=== PATIENT | female | born 1995 | race Caucasian/White ===

== ENCOUNTER → 2018-01-20 16:00 | Observation (INO) ==
[2018-01-20 14:04] LABS: Basophils % 0.4 %; Eosinophils # 0.1 K/mcL (0.0-0.6); Eosinophils % 0.8 %; Hematocrit 37.9 % (35.3-44.9); Immature Granulocytes % 0.5 % (0-4); Lymphocytes # 1.4 K/mcL (0.6-4.6); Lymphocytes % 18.6 %; Mean Corpuscular HGB Conc 34.3 g/dL (31.6-35.5); Mean Corpuscular Hemoglobin 28.8 pg (28.0-33.3); Mean Platelet Volume 10.4 fL (9.4-12.4); Monocytes # 0.4 K/mcL (0.0-1.3); Monocytes % 5.5 %; Neutrophils # 5.7 K/mcL (1.6-8.9); Platelet Count 270 K/mcL (140-400); Red Blood Count 4.51 M/mcL (3.82-4.97); Red Cell Distribution Width 13.7 % (11.5-14.5); Segmented Neutrophils % 74.2 %
[2018-01-20 14:06] LABS: Bilirubin,Urine Negative (Negative); Blood,Urine Negative (Negative); Clarity,Urine Cloudy (Clear); Color,Urine Yellow (Yellow); Glucose,Urine (UA) Normal (Normal); Ketones,Urine 40 mg/dL (Negative); Leukocyte Esterase,Urine Negative (Negative); Nitrite,Urine Negative (Negative); Protein,Urine Negative (Neg-Trace); Specific Gravity,Urine < 1.005 (1.010-1.025); Urobilinogen,Urine Normal (Normal)
[2018-01-20 14:07] LABS: Bacteria,Urine Moderate per hpf (None-Few); Hyaline Casts,Urine None Seen per lpf (None-Few); RBC,Urine 0-3 per hpf (0-3); Squamous Epithelial Cell,Urine Many per lpf (None-Few)
[2018-01-20 14:14] LABS: Amphetamine Screen,Urine Negative ng/mL (Cutoff=1000); Barbiturate Screen,Urine Negative ng/mL (Cutoff=200); Benzodiazepines Screen,Urine Negative ng/mL (Cutoff=200); Cannabinoid Screen,Urine Negative ng/mL (Cutoff = 50); Cocaine Screen,Urine Negative ng/mL (Cutoff= 300); Opiate Screen,Urine Negative ng/mL (Cutoff=300); Phencyclidine Screen,Urine Negative ng/mL (Cutoff=25)
[2018-01-20 14:27] LABS: Alanine Aminotransferase 54 Units/L (7-52); Aspartate Amino Transferase 26 Units/L (13-39); BUN/Creatinine Ratio 9 (6-26); Blood Urea Nitrogen 6 mg/dL (6-20); Lactate Dehydrogenase 130 Units/L (140-271); eGFR For Non-African Americans > 60 (> 60)
--- NOTE | 2018-01-20 14:58 | Discharge Summary ---
Date of Encounter: 01/20/18 Time of Encounter: 14:58 - Discharge Diagnosis (1) 36 weeks gestation of Priority: Primary Status: Acute Comments: Admitted to observation for elevated blood pressure reading at home. Currently diagnosed with gestational hypertension and gestational diabetes. (2) headache in third trimester Priority: Secondary Status: Acute Comments: Patient reports headache this morning at home. Rates it a 4 out of 10. Patient states she has not taken any Tylenol to alleviate the pain. (3) NST (non-stress test) reactive Priority: Secondary Status: Acute Comments: FHR 140 bpm, moderate variability, +15 x 15 accelerations, no decelerations. Irregular contractions on toco monitor (4) Elevated blood pressure affecting in third trimester, antepartum Priority: Secondary Status: Acute Comments: Patient reports her blood pressure at home was 192/108. Recheck at home was 160s over 80s. Pressures while here 120s and 130s over 80s. One isolated blood pressure of 159/105. Patient was on the phone crying at this time retake was 147/88. [facility] labs completed all within normal limits. Patient has follow-up appointment with Dr. Priest in 2 days. (5) Gestational diabetes Priority: Secondary Status: Acute Comments: Continue metformin twice a day as previously ordered. Attending home glucose monitoring as ordered. Qualifiers: Gestational diabetes mellitus control: oral hypoglycemic-controlled Trimester: third trimester Qualified Code(s): O24.415 - Gestational diabetes mellitus in , controlled by oral hypoglycemic drugs (6) Vaginal discharge during in third trimester Priority: Secondary Status: Acute Comments: Patient complaint of watery discharge today. Nitrazine and fern both negative. Speculum exam reveals large amount of white discharge. Vaginosis panel sample collected and sent to lab. Will treat as necessary. - Discharge Medications Home Medications: RX: Metformin HCl 500 mg PO BID 01/13/18 [History] Allergies/Adverse Reactions: Allergy/AdvReac Type Severity Reaction Status Date / Time No Known Allergies Allergy Verified 06/20/17 02:28 Data Procedures and tests throughout hospitalization: Laboratory Tests 01/20/18 01/20/18 01/20/18 13:00 13:00 13:00 WBC 7.7 RBC 4.51 Hgb 13.0 Hct 37.9 MCV 84.0 MCH 28.8 MCHC 34.3 RDW 13.7 Plt Count 270 MPV 10.4 Immature Gran % 0.5 Seg Neutrophils % 74.2 Lymphocytes % 18.6 Monocytes % 5.5 Eosinophils % 0.8 Basophils % 0.4 Neutrophils # 5.7 Lymphocytes # 1.4 Monocytes # 0.4 Eosinophils # 0.1 Basophils # 0.0 BUN Creatinine Est GFR ( Amer) Est GFR (Non-Af Amer) BUN/Creatinine Ratio Uric Acid AST ALT Lactate Dehydrogenase Urine Color Yellow Urine Clarity Cloudy A Urine pH 7.0 Ur Specific [place] < 1.005 L Urine Protein Negative Urine Glucose (UA) Normal Urine Ketones 40 H Urine Blood Negative Urine Nitrite Negative Urine Bilirubin Negative Urine Urobilinogen Normal Ur Leukocyte Esterase Negative Urine Microscopic RBC 0-3 Urine Microscopic WBC 3-5 H Ur Squamous Epith Cells Many H Urine Bacteria Moderate H Hyaline Casts None Seen Ur Culture Indicated? NO Urine Opiates Screen Negative Ur Barbiturates Screen Negative Ur Phencyclidine Scrn Negative Ur Amphetamines Screen Negative U Benzodiazepines Scrn Negative Urine Cocaine Screen Negative U Marijuana (THC) Screen Negative Ur Drug Screen Interp See Below 01/20/18 13:00 WBC RBC Hgb Hct MCV MCH MCHC RDW Plt Count MPV Immature Gran % Seg Neutrophils % Lymphocytes % Monocytes % Eosinophils % Basophils % Neutrophils # Lymphocytes # Monocytes # Eosinophils # Basophils # BUN 6 Creatinine 0.65 Est GFR ( Amer) > 60 Est GFR (Non-Af Amer) > 60 BUN/Creatinine Ratio 9 Uric Acid 5.0 AST 26 ALT 54 H Lactate Dehydrogenase 130 L Urine Color Urine Clarity Urine pH Ur Specific [place] Urine Protein Urine Glucose (UA) Urine Ketones Urine Blood Urine Nitrite Urine Bilirubin Urine Urobilinogen Ur Leukocyte Esterase Urine Microscopic RBC Urine Microscopic WBC Ur Squamous Epith Cells Urine Bacteria Hyaline Casts Ur Culture Indicated? Urine Opiates Screen Ur Barbiturates Screen Ur Phencyclidine Scrn Ur Amphetamines Screen U Benzodiazepines Scrn Urine Cocaine Screen U Marijuana (THC) Screen Ur Drug Screen Interp Labs on day of discharge: Labs from last 24 hours 01/20/18 01/20/18 01/20/18 13:00 13:00 13:00 WBC 7.7 RBC 4.51 Hgb 13.0 Hct 37.9 MCV 84.0 MCH 28.8 MCHC 34.3 RDW 13.7 Plt Count 270 MPV 10.4 Immature Gran % 0.5 Seg Neutrophils % 74.2 Lymphocytes % 18.6 Monocytes % 5.5 Eosinophils % 0.8 Basophils % 0.4 Neutrophils # 5.7 Lymphocytes # 1.4 Monocytes # 0.4 Eosinophils # 0.1 Basophils # 0.0 BUN 6 Creatinine 0.65 Est GFR ( Amer) > 60 Est GFR (Non-Af Amer) > 60 BUN/Creatinine Ratio 9 Uric Acid 5.0 AST 26 ALT 54 H Lactate Dehydrogenase 130 L Urine Color Yellow Urine Clarity Cloudy A Urine pH 7.0 Ur Specific [place] < 1.005 L Urine Protein Negative Urine Glucose (UA) Normal Urine Ketones 40 H Urine Blood Negative Urine Nitrite Negative Urine Bilirubin Negative Urine Urobilinogen Normal Ur Leukocyte Esterase Negative Urine Microscopic RBC 0-3 Urine Microscopic WBC 3-5 H Ur Squamous Epith Cells Many H Urine Bacteria Moderate H Hyaline Casts None Seen Ur Culture Indicated? NO Urine Opiates Screen Ur Barbiturates Screen Ur Phencyclidine Scrn Ur Amphetamines Screen U Benzodiazepines Scrn Urine Cocaine Screen U Marijuana (THC) Screen Ur Drug Screen Interp 01/20/18 13:00 WBC RBC Hgb Hct MCV MCH MCHC RDW Plt Count MPV Immature Gran % Seg Neutrophils % Lymphocytes % Monocytes % Eosinophils % Basophils % Neutrophils # Lymphocytes # Monocytes # Eosinophils # Basophils # BUN Creatinine Est GFR ( Amer) Est GFR (Non-Af Amer) BUN/Creatinine Ratio Uric Acid AST ALT Lactate Dehydrogenase Urine Color Urine Clarity Urine pH Ur Specific [place] Urine Protein Urine Glucose (UA) Urine Ketones Urine Blood Urine Nitrite Urine Bilirubin Urine Urobilinogen Ur Leukocyte Esterase Urine Microscopic RBC Urine Microscopic WBC Ur Squamous Epith Cells Urine Bacteria Hyaline Casts Ur Culture Indicated? Urine Opiates Screen Negative Ur Barbiturates Screen Negative Ur Phencyclidine Scrn Negative Ur Amphetamines Screen Negative U Benzodiazepines Scrn Negative Urine Cocaine Screen Negative U Marijuana (THC) Screen Negative Ur Drug Screen Interp See Below Date of admission: 01/20/18 12:48 Discharging clinician: Rosa Ganonn Anticipated date of discharge: 01/20/18 - Patient Status Disposition: Home, Self-Care Condition: Good Functional capacity at discharge: independent ambulation Overall status at discharge: patient is back to baseline - Discharge Instructions Follow Up With: Sandra Priest DO [Partnered Physician] - Additional Instructions: LABOR AND DELIVERY DISCHARGE INSTRUCTIONS Signs and Symptoms to be Reported to your Doctor Immediately: * Sudden gush, continuous or intermittent lead of fluid from vagina (note the time of gush and color of fluid) * Onset of bright red vaginal bleeding with or without pain (if you had a vaginal exam during this visit you may notice some dark red spotting. This is normal.) * Lower abdominal cramping or backache that is premenstrual-like feeling. * More than 6 contractions in one hour. * Burning during urination, having to urinate more frequently or pain in your mid-back. * A change in the baby's activity. This could be an increase or decrease in activity. * Severe headache which does not go away with tylenol. * Sudden swelling in the face, hands, arms and/or legs. * Upper abdominal pain - sometimes associated with heartburn or nausea and is not relieved by Maalox, Mylanta or Tums. * Dizziness or blurred vision or visual disturbances (seeing stars/lights). * Kick Counts One hour after a meal, lay down on one side in a quiet place. Count the number of steff the baby moves during an hour. If less than 6 movements, notify your physician. Diet: *Force fluids - 8-10 tall glasses of fluid per day. May include popsicles and jello. *Limit caffeine - this includes chocolate, coffee, tea, any soft drink containing such as all izzy, Brandon Yellow and Mountain Dew - Diet and Activity Activity: resume usual activities as tolerated Diet: regular diet Hospital Course [employer] Hospital course: She has a at 36 weeks 5 days who reports to labor and delivery today with complaint of elevated blood pressure at home. She reports a moderate headache rating of 4 of 10 and had not taken any Tylenol for it today. She reports intermittent visual disturbance as seeing spots. No right upper quadrant pain, reflexes normal. She reports positive movement, denies bleeding, reports leakage of watery fluid today. Blood pressures while patient was here ranged from 120s and 130s over 80s. Her highest blood pressure is 159/105 but patient was on the phone crying at this time. Retake of her blood pressure was 147/88. [facility] labs all returned within normal limits. Protein creatinine ratio is 0.28. Patient is scheduled to see Dr. Priest on Monday for routine visit. There are some irregular contractions noted on the monitor, patient was examined. Cervix is 1 cm thick and high. Patient will be discharged home and is to follow-up as scheduled on Monday. If vaginosis panel returns abnormal she will be called and appropriate treatment will be initiated. Time Attestation: Total time spent providing and/or coordinating discharge services: Time Spent: Less than 30 minutes Exam - Constitutional General appearance IM: A&O X 3, pleasant, no acute distress, answers questions appropriately - Respiratory Respiratory exam: Present: CTAB - Cardiovascular Cardiovascular exam IM: Present: RRR, +S1, +S2 - GI/Abdominal GI/Abdominal exam IM: normal bowel sounds, soft - Rectal Rectal exam: deferred - Extremities Exam Extremities exam IM: Present: full ROM, normal capillary refill, normal inspection, pedal edema - Neurological Exam Neurological exam: alert, normal gait, oriented X3 - VTE Reasons for not Prescribing Prophylaxis: Treatment not Indicated - Low risk for VTE
[2018-01-20 15:40] LABS: Protein/Creatinine Ratio,Urine 0.28 mg/mg (0.00-0.20)
[2018-01-20 16:42] LABS: Candida DNA Not Detected (Not Detect); Gardnerella DNA DETECTED (Not Detect); Trichomonas DNA Not Detected (Not Detect)
== END | disposition home or self-care (01) ==
LOC: 1NENULAB
PROVIDERS: ADMIT Obstetrics & Gynecology; ATTEND Obstetrics & Gynecology

== ENCOUNTER → 2018-02-05 13:49 | Observation (INO) ==
[2018-02-05 12:04] LABS: Amphetamine Screen,Urine Negative ng/mL (Cutoff=1000); Barbiturate Screen,Urine Negative ng/mL (Cutoff=200); Benzodiazepines Screen,Urine Negative ng/mL (Cutoff=200); Cannabinoid Screen,Urine Negative ng/mL (Cutoff = 50); Cocaine Screen,Urine Negative ng/mL (Cutoff= 300); Opiate Screen,Urine Negative ng/mL (Cutoff=300); Phencyclidine Screen,Urine Negative ng/mL (Cutoff=25)
--- NOTE | 2018-02-05 12:25 | OB/GYN Progress Note ---
Date of Encounter: 02/05/18 Time of Encounter: 12:20 - Assessment and Plan (1) 39 weeks gestation of Current Visit: Yes Status: Acute 2 hours monitoring - reactive NST, no decels during extended monitoring noted. PIH labs WNL Serial blood pressures Discharge home with labor and PIH precautions Follow up on Monday morning for scheduled IOL. (2) Elevated blood pressure complicating in third trimester, antep artum Current Visit: Yes Status: Acute (3) NST (non-stress test) reactive Current Visit: Yes Status: Acute Subjective - Subjective Interval history: Ms López is a at 39 weeks 0 days gestation that presents to triage for extended monitoring from the office. She had a deceleration in the office on NST and an KASSY of 9.9. She did have a mildly elevated blood pressure in the office as well of 140/90. She states positive movement. She denies headache, visual disturbances, epigastric pain, leaking of fluid, vaginal discharge/bleeding, and contractions. She is a GDM on metformin and is seen in the office by Dr Priest. Antepartum ROS: movement normal, other (decel in office on NST) Objective - Vital Signs Vital Signs: Intake and Output 02/04/18 02/05/18 02/05/18 23:59 07:59 15:59 Other: Weight 123.4 kg Patient Weight 02/05/18 23:59 Weight 123.4 kg - Exam FHR: auscultation normal, category 1 (Baseline 135, no contractions per TOCO) Auscultation: bilateral: normal Abdomen: Present: normal appearance, soft, gravid. Absent: tenderness Uterus: Present: normal. Absent: firm, tenderness
[2018-02-05 13:08] LABS: Basophils % 0.5 %; Eosinophils # 0.1 K/mcL (0.0-0.6); Eosinophils % 1.3 %; Hematocrit 35.7 % (35.3-44.9); Hemoglobin 12.2 g/dL (11.5-15.4); Immature Granulocytes % 0.4 % (0-4); Lymphocytes # 1.7 K/mcL (0.6-4.6); Lymphocytes % 19.3 %; Mean Corpuscular HGB Conc 34.2 g/dL (31.6-35.5); Mean Corpuscular Hemoglobin 28.2 pg (28.0-33.3); Mean Corpuscular Volume 82.6 fL (83.0-100.0); Mean Platelet Volume 10.1 fL (9.4-12.4); Monocytes # 0.5 K/mcL (0.0-1.3); Neutrophils # 6.2 K/mcL (1.6-8.9); Platelet Count 247 K/mcL (140-400); Red Blood Count 4.32 M/mcL (3.82-4.97); Segmented Neutrophils % 72.5 %
[2018-02-05 13:26] LABS: Alanine Aminotransferase 27 Units/L (7-52); Aspartate Amino Transferase 19 Units/L (13-39); BUN/Creatinine Ratio 8 (6-26); Blood Urea Nitrogen 5 mg/dL (6-20); Lactate Dehydrogenase 107 Units/L (140-271); eGFR For Non-African Americans > 60 (> 60)
[2018-02-05 14:07] LABS: Protein/Creatinine Ratio,Urine 0.19 mg/mg (0.00-0.20)
== END | disposition home or self-care (01) ==
LOC: 1NENULAB
PROVIDERS: ADMIT Advanced Practice Midwife; ATTEND Advanced Practice Midwife

== ENCOUNTER 2018-02-07 06:00 | Inpatient (IN) ==
[2018-02-07] MEDS ORDERED: Metoclopramide 10 MG/2 ML VIAL IVP PRN (06:17)
[2018-02-07] MEDS ORDERED: Naloxone 0.4 MG/ML INJ IVP PRN ×2 (06:17→09:10)
[2018-02-07] MEDS ORDERED: Famotidine 20 MG/2 ML VIAL IVP PRN (06:17)
[2018-02-07] MEDS ORDERED: Lidocaine 1% 20 ML MDV INFILT PRN (06:17)
[2018-02-07] MEDS ORDERED: Oxytocin 20 units/ LR 1000 mL 20 UNIT/1,000 ML BAG IVC SCH ×2 (06:30→23:48)
[2018-02-07] MEDS ORDERED: *HR* Nalbuphine 10 MG/ML AMPUL IVP PRN (06:36)
[2018-02-07] MEDS ORDERED: Ringers Solution, Lactated 1,000 ML ONE (06:40)
[2018-02-07] MEDS ORDERED: Ringers Solution, Lactated 1,000 ML IVC SCH (06:45)
[2018-02-07 06:56] LABS: Basophils % 0.5 %; Eosinophils # 0.1 K/mcL (0.0-0.6); Eosinophils % 1.5 %; Hematocrit 36.6 % (35.3-44.9); Hemoglobin 12.3 g/dL (11.5-15.4); Immature Granulocytes % 0.4 % (0-4); Lymphocytes # 2.4 K/mcL (0.6-4.6); Lymphocytes % 28.8 %; Mean Corpuscular HGB Conc 33.6 g/dL (31.6-35.5); Mean Corpuscular Hemoglobin 27.8 pg (28.0-33.3); Mean Corpuscular Volume 82.6 fL (83.0-100.0); Mean Platelet Volume 10.4 fL (9.4-12.4); Monocytes # 0.8 K/mcL (0.0-1.3); Monocytes % 9.3 %; Neutrophils # 4.9 K/mcL (1.6-8.9); Platelet Count 258 K/mcL (140-400); Red Blood Count 4.43 M/mcL (3.82-4.97); Red Cell Distribution Width 13.9 % (11.5-14.5); Segmented Neutrophils % 59.5 %
[2018-02-07 06:59] LABS: Amphetamine Screen,Urine Negative ng/mL (Cutoff=1000); Barbiturate Screen,Urine Negative ng/mL (Cutoff=200)
[2018-02-07 07:00] LABS: Benzodiazepines Screen,Urine Negative ng/mL (Cutoff=300); Cannabinoid Screen,Urine Negative ng/mL (Cutoff = 50); Cocaine Screen,Urine Negative ng/mL (Cutoff= 300); Opiate Screen,Urine Negative ng/mL (Cutoff=300); Phencyclidine Screen,Urine Negative ng/mL (Cutoff=25)
--- NOTE | 2018-02-07 08:30 | OB/GYN History & Physical ---
Date of Encounter: 02/07/18 Time of Encounter: 08:22 Assessment and Plan (1) Elective induction of labor planned Current visit: Yes Status: Acute Pitocin induction already underway. EFM with anticipation of vaginal delivery. Patient does have a tongue piercing and was again asked to remove due to possible obstruction to airway in an emergency. She understands and states she will remove it. (2) 39 weeks gestation of Current visit: No Status: Acute (3) Gestational diabetes Current visit: No Status: Acute Serum glucose normal this morning. Qualifiers: Gestational diabetes mellitus control: oral hypoglycemic-controlled Trimester: third trimester Qualified Code(s): O24.415 - Gestational diabetes mellitus in , controlled by oral hypoglycemic drugs History of Present Illness Chief complaint: Induction of labor at term HPI: Ms. López is a 22 year old female G1 at 39 2/7 weeks presents to labor and delivery for induction of labor at term with GDM A2 treated with Metformin. Her has been complicated by gestational diabetes and obesity. She states her contractions with the pitocin already started are getting stronger. She denies any leaking fluid or vaginal bleeding. She reports good movements. She was sent to labor and delivery on Monday for prolonged monitoring and PIH eval. She has not checked her blood sugars yesterday or today. Past Med Surg Social Fam HX - Past Medical History Source: patient Medical history: non-contributory Additional medical history: PCOS Psychiatric history: no psych history - Past Surgical History Surgical History: no surgical history (wisdom teeth) - Social History Smoking Status: Never smoker Smokeless Tobacco Status: No Alcohol use: none Drug use: none - Family History Mother Adopted: No Living Status: Still Living Hx Family Cardiac Disorders: No Hx Family Respiratory Disorders: No Hx Family Cancer: Yes (leukemia) Hx Family GI Disorders: No Hx Family Genitourinary Disorders: No Hx Family Endocrine Disorder: No Hx Family Musculoskeletal Disorders: No Hx Family Neuromuscular Disorders: No Hx Family Neurologic Disorders: No Hx Family HEENT Disorders: No Hx Family Autoimmune Disorders: No Hx Family Reproductive Disorders: No Hx Family Psychosocial Disorders: No Hx Family Medical Disorders: No Obstetrical History - Pregnancies : 1 Medications and Allergies Metformin HCl 500 mg PO BID 01/13/18 [History] 3 Allergy/AdvReac Type Severity Reaction Status Date / Time No Known Allergies Allergy Verified 06/20/17 02:28 Review of System OB All systems PM: reviewed and no additional remarkable complaints except as stated Exam - Constitutional Constitutional: well developed, well nourished, no acute distress, obese - HEENT HEENT: EOMI - Lungs Respiratory exam: CTAB - Cardiovascular Cardiovascular exam: RRR - Abdomen Abdomen: Present: bowel sounds normal, gravid, non tender - Cervix Dilation: 3 Effacement: 80 Station: -1 Results Result Diagrams: 02/07/18 06:33 02/07/18 06:33 Abnormal lab results MCV 82.6 fL (83.0-100.0) L 02/07/18 06:33 MCH 27.8 pg (28.0-33.3) L 02/07/18 06:33 All other labs normal. US - abdomen: report reviewed (01/12/18 EFW 2794 gm (6 lb 3 oz) 68th%; KASSY on 02/05/18 9.9 cm) - VTE Reasons for not Prescribing Prophylaxis: Treatment not Indicated - Low risk for VTE
[2018-02-07] MEDS ORDERED: EPHEDrine 50 MG/ML VIAL IVP PRN (09:10)
[2018-02-07] MEDS ORDERED: Ondansetron 4 MG/2 ML VIAL IVP PRN (09:10)
[2018-02-07] MEDS ORDERED: *HR* Ropivacaine/PF 0.2% 20 ML VIAL EP ONE (09:10)
[2018-02-07] MEDS ORDERED: *HR* FentaNYL (PF) 100 MCG/2 ML VIAL EP ONE (09:10)
--- NOTE | 2018-02-07 09:14 | Anesthesia Evaluation PreOp ---
Date of Encounter: 02/07/18 Time of Encounter: 09:04 - Past History Planned Operation: CJ Cardiac History: Denies any Significant Hx Pulmonary History: Denies Any Significant HX STRUCTURAL ENGINEERING PROJECT MANAGER History: Denies Any Significant HX Other Medical History: Other (Gestational diabetes, controlled with metformin) Anesthesia History: No Prior Anesthetic Complications, Past Anesthesia : Yes Alcohol Use: none Drug use: none Medications and Allergies Metformin HCl 500 mg PO BID 01/13/18 [History] Allergy/AdvReac Type Severity Reaction Status Date / Time No Known Allergies Allergy Verified 06/20/17 02:28 - Meds/Allergy Pre-op Review Medications Reviewed: Yes Allergies Reviewed: Yes Beta Blockers on Current Med List: No Anesthesia Results - Labs 02/07/18 06:33 02/07/18 06:33 Anesthesia Exam BP 131/81 P 71 R 16 T 97.4 Height: 5'9" Weight: 124.3kg NPO (# of Hours): 2 Pain Scale: 2 Pain Scale Used: Numeric (1 - 10) - HEENT Pupil (Motor): Pupils equal Mallampati: II Teeth: Normal Oral Opening: Greater than 3 - STRUCTURAL ENGINEERING PROJECT MANAGER LOC: Oriented STRUCTURAL ENGINEERING PROJECT MANAGER Motor: Normal RUE, Normal LUE, Normal RLE, Normal LLE, Normal Face STRUCTURAL ENGINEERING PROJECT MANAGER Sensory: Normal: RUE, LUE, RLE, LLE, Face - Cardiac Rhythm: Regular Murmur: None JVD: No Carotid Bruit: No - Pulmonary Breath Sounds: bilateral Clear Respiratory Effort: Symmetrical Anesthesia Assess/Plan ASA Score: 2 Level of consciousness: Cooperative Anesthetic Plan: Epidural Reason for No Neuroaxial/Regional Block: Other Autologous Blood: No Monitoring Plan: Standard Monitors Recovery Plan: Other
[2018-02-07] MEDS ORDERED: Epidural Premix (fent/bupiv) 110 ML EP SCH (09:15)
--- NOTE | 2018-02-07 14:57 | OB Labor Progress Note ---
Date of Encounter: 02/07/18 Time of Encounter: 14:55 Labor Progress Note - Subjective Subjective: Pt reports some discomfort with contractions. No other complaints. - Cervix Cervix: 3/80/-1 - Heart Tones Heart Tones: Category I - [place]: Q 2 minutes - Interventions Interventions: AROM for moderate amount clear fluid. IUPC and FSE placed. - Plan Plan: Continue to monitor and titrate pitocin. Epidural when requested. Anticipate .
[2018-02-07] MEDS ORDERED: *HR* FentaNYL (PF) 100 MCG/2 ML VIAL ONE (15:43)
[2018-02-07] MEDS ORDERED: *HR* Ropivacaine/PF 0.2% 20 ML VIAL ONE (15:43)
[2018-02-07] MEDS ORDERED: Lidocaine -MPF 1% 5 ML AMPUL ONE (15:44)
--- NOTE | 2018-02-07 16:22 | Anesthesia Procedures ---
Addendum entered and electronically signed by Stevie Cardona CRNA 02/07/18 22:28: Infant A Delivery Date: 02/07/18 Infant Delivery Time: 20:40 Original Note: Date of Encounter: 02/07/18 Time of Encounter: 15:45 Procedures: Anesthesia - Epidural/Spinal Patient ID/Chart reviewed: Yes Patient examined: Yes OB Eval: Gestational age: 39.2 OB Eval: : 1 OB Eval: Hx Para: 0 OB Eval: Dilated at (cm): 3 OB Eval: Contractions: Non-stressed pattern Consent Obtained: Yes Supplemental Oxygen: None/Room Air Site Prep: Aseptic Technique, Sterile prep and drape, Povidone-Iodine 1% Patient position: upright Local Anesthetic: Lidocaine 1% Amount of Local Anesthetic used: 3 Touhy Needle Gauge: 18 Touhy Needle Depth (cm): 8 Catheter Depth at Skin (cm): 15 Test Dose (1.5% Lido + Epi): Volume given (mls): 3 Test Dose Result: Negative Loading Dose: Fentanyl (mcg): 100 Loading Dose: Other: Ropivicaine 0.2% 8ml Loading Dose Administered: Thru Catheter Infusion Med: 0.125% Bupivacaine w/ 2 mcg/ml Fentanyl Infusion Rate (mls/hr): [address]: Tegaderm, Tape Interspace Used: L3-L4 Loss of Resistance (MARY): Yes Blood: No CSF: No Paresthesia: No Procedure: CJ placed 1st pass in upright position, negative heme, negative CSF, without any immediate noted issues on placement or with bolus dose administration. VSS and FHT stable throughout. Vitals + FHT's: 1545 BP 135/85 P 72 R 18 1615 BP 126/66 P 61 R 16 FHT 120s
--- NOTE | 2018-02-07 17:27 | OB Labor Progress Note ---
Date of Encounter: 02/07/18 Time of Encounter: 17:24 Labor Progress Note - Subjective Subjective: Patient is comfortable after her epidural. She denies any concerns at this time. - Cervix Cervix: 8/90/0 vertex - Heart Tones Heart Tones: category 1, baseline 120's - [place]: q 2 minutes - Interventions Interventions: Continue pitocin induction in anticipation of vaginal delivery
--- NOTE | 2018-02-07 21:04 | OB/GYN Procedure Note ---
Delivery - Delivery Date: 02/07/18 Provider: Sandra Priest Intrapartum events: none Delivery induction: AROM, oxytocin Delivery monitor: external FHT, external uterine, internal FHT, internal uterine Anesthesia: epidural Quantitated Blood Loss: 100 - (s) Infant A Delivery Date: 02/07/18 Delivery Time: 20:40 Presentation: vertex Position: OA Route of delivery: Gender: Female Viability: Viable Pounds: 7 Ounces: 8 at 1 minute: 8 at 5 mins: 9 Shoulder Dystocia: not encountered Specimens collected: cord blood, venous cord gases, arterial cord gases Placenta: spontaneous Cord: nuchal cord, 3 umbilical vessels, nuchal reduced - Repair Episiotomy: none Laceration Description: None - Complications Delivery complications: none Delivery comments: Called to room with patient complete and +2 station. Under maternal effort she delivered a viable female weighing 7 lbs. 8 oz. and Apgars 8 and 9 at one and 5 minutes respectively over an intact perineum. Following delivery of the head there was a nuchal cord noted and reduced. The infant delivered in straight OA presentation. There was a delay from delivery of the head to delivery of the shoulders due to lack of maternal effort. There was no shoulder dystocia encountered. Patient was placed in Mamie position and encouraged to push and the shoulders delivered without difficulty. It was placed on moms abdomen. Cord was clamped and cut rapidly. was taken to the warmer. A segment of cord was collected for gases. Cord blood was collected. Placenta delivered spontaneously, complete, and intact with a three-vessel cord. There are no labial, vaginal, cervical, or perineal lax on exam. Mother and infant recovering in the LDR in stable condition. - Disposition Mom disposition: stable in LDR disposition: stable in LDR
[2018-02-07] MEDS ORDERED: Ibuprofen 600 MG TABLET PO PRN (23:48)
[2018-02-07] MEDS ORDERED: Measles/Mumps/Rubella Vacc 0.5 ML VIAL SQ PRN (23:48)
[2018-02-07] MEDS ORDERED: Acetaminophen 325 MG TABLET PO PRN (23:48)
[2018-02-08] MEDS ORDERED: Prenatal Vit/FA 1 EACH TABLET PO SCH (09:00)
--- NOTE | 2018-02-08 09:19 | OB/GYN Progress Note ---
Date of Encounter: 02/08/18 Time of Encounter: 09:17 - Assessment and Plan (1) Vaginal delivery Current Visit: Yes Status: Acute Continue routine Anticipate discharge home tomorrow (2) Gestational diabetes mellitus (GDM) Current Visit: Yes Status: Acute Glucose tolerance test needed at visit. Qualifiers: Gestational diabetes mellitus control: unspecified Trimester: unspecified trimester Qualified Code(s): O24.419 - Gestational diabetes mellitus in , unspecified control Subjective - Subjective Principal diagnosis: S/P Vaginal delivery Interval history: S/P vaginal delivery day 1 Pain well controlled Lochia light and without clots VSS Tolerating regular diet; passing flatus Voiding without difficulty Bottle feeding Anticipate discharge home tomorrow POC per consult with Dr Souza Patient reports: appetite normal, voiding normally, pain well controlled, ambulating normally : doing well, bottle feeding Objective - Latest Vital Signs Latest vital signs: Vital Signs Temp Pulse Resp BP Pulse Ox 02/08/18 07:30 97.5 F L 65 16 122/72 02/08/18 01:00 97.8 F 72 14 117/70 97 02/08/18 00:00 98.0 F 71 16 135/85 99 02/07/18 23:00 98.7 F 67 16 132/82 99 Intake and Output 02/07/18 02/08/18 02/08/18 23:59 07:59 15:59 Intake Total 600 / 600 200 / 200 Output Total 800 / 800 900 / 900 Balance -200 / -200 -700 / -700 Intake: Oral 600 / 600 200 / 200 Output: Urine 800 / 800 900 / 900 Other: Stool Characteristics Normal for Patient Weight 123.3 kg - Exam Lungs: bilateral: normal Chest: Normal S1, Normal S2 Extremities: Present: normal Abdomen: Present: normal appearance, soft. Absent: gravid, tenderness Uterus: Present: normal, firm. Absent: tenderness Uterus Position: At Umbilicus, Midline
[2018-02-09 08:45] VITALS: BP 126/84
[2018-02-09 08:47] LABS: ABG Base Excess -6 mEq/L (-2 to 3); ABG HCO3 20 mEq/L (21-27); ABG Oxygen Saturation 62 % (95-98); ABG PCO2 38 mmHg (35-45); ABG PH 7.32 pH Units (7.32-7.45); ABG PO2 35 mmHg (85-104); ABG TCO2 21 mEq/L (20-26)
--- NOTE | 2018-02-09 10:17 | Discharge Summary ---
Date of Encounter: 02/09/18 Time of Encounter: 10:15 - Discharge Diagnosis (1) Gestational diabetes mellitus (GDM) Priority: Secondary Status: Acute Comments: 2 hour gtt needed after visit Qualifiers: Gestational diabetes mellitus control: unspecified Trimester: unspecified trimester Qualified Code(s): O24.419 - Gestational diabetes mellitus in , unspecified control (2) Vaginal delivery Priority: Primary Status: Acute Comments: Continue routine care discharge home today follow up with Dr. Priest in 4-6 weeks - Discharge Medications Prescriptions: Ibuprofen [Motrin] 600 mg PO Q6HR PRN #60 tablet PRN Reason: Cramping Home Medications: Ibuprofen [Motrin] 600 mg PO Q6HR PRN #60 tablet 02/09/18 [Rx] Vit/FA 1 each PO DAILY tablet 02/09/18 [Rx] Allergies/Adverse Reactions: Allergy/AdvReac Type Severity Reaction Status Date / Time No Known Allergies Allergy Verified 06/20/17 02:28 Data Procedures and tests throughout hospitalization: Laboratory Tests 02/07/18 02/07/18 02/07/18 06:33 06:33 06:33 WBC 8.2 RBC 4.43 Hgb 12.3 Hct 36.6 MCV 82.6 L MCH 27.8 L MCHC 33.6 RDW 13.9 Plt Count 258 MPV 10.4 Immature Gran % 0.4 Seg Neutrophils % 59.5 Lymphocytes % 28.8 Monocytes % 9.3 Eosinophils % 1.5 Basophils % 0.5 Neutrophils # 4.9 Lymphocytes # 2.4 Monocytes # 0.8 Eosinophils # 0.1 Basophils # 0.0 ABG pH ABG pCO2 ABG pO2 ABG HCO3 ABG Total CO2 ABG O2 Saturation ABG Base Excess O2 Delivery Device Inspired O2 Glucose 86 Urine Opiates Screen Negative Ur Barbiturates Screen Negative Ur Phencyclidine Scrn Negative Ur Amphetamines Screen Negative U Benzodiazepines Scrn Negative Urine Cocaine Screen Negative U Marijuana (THC) Screen Negative Ur Drug Screen Interp See Below 02/07/18 21:11 WBC RBC Hgb Hct MCV MCH MCHC RDW Plt Count MPV Immature Gran % Seg Neutrophils % Lymphocytes % Monocytes % Eosinophils % Basophils % Neutrophils # Lymphocytes # Monocytes # Eosinophils # Basophils # ABG pH 7.32 ABG pCO2 38 ABG pO2 35 L* ABG HCO3 20 L ABG Total CO2 21 ABG O2 Saturation 62 L ABG Base Excess -6 L O2 Delivery Device Room Air Inspired O2 21.0 Glucose Urine Opiates Screen Ur Barbiturates Screen Ur Phencyclidine Scrn Ur Amphetamines Screen U Benzodiazepines Scrn Urine Cocaine Screen U Marijuana (THC) Screen Ur Drug Screen Interp Labs on day of discharge: Labs from last 24 hours 02/07/18 21:11 ABG pH 7.32 ABG pCO2 38 ABG pO2 35 L* ABG HCO3 20 L ABG Total CO2 21 ABG O2 Saturation 62 L ABG Base Excess -6 L O2 Delivery Device Room Air Inspired O2 21.0 Date of admission: 02/07/18 06:16 Primary care physician: PCP NONE Consults: 02/07/18 23:48 Consult to [facility] Order Picker [CONS] Routine Comment: Vaginal delivery, consult needed Discharging clinician: Ida Mccollum Anticipated date of discharge: 02/09/18 - Patient Status Disposition: Home, Self-Care Condition: Good Functional capacity at discharge: independent ambulation - Discharge Instructions Follow Up With: NONE,PCP [Primary Care Provider] - Sandra Priest DO [Partnered Physician] - - Diet and Activity Activity: increase activity as tolerated Diet: regular diet Hospital Course Reason for admission: induction of labor Delivery: Episiotomy: none Other procedures: none complications: none Discharge diagnosis: IUP at term delivered baby: female (bottle feeding) Time Attestation: Total time spent providing and/or coordinating discharge services: Time Spent: Less than 30 minutes Exam - Constitutional Vitals: Temp Pulse Resp BP Pulse Ox 98.3 F 73 16 126/84 100 02/09/18 08:44 02/09/18 08:44 02/09/18 08:44 02/09/18 08:44 02/09/18 08:44 General appearance IM: A&O X 3, pleasant, answers questions appropriately - Respiratory Respiratory exam: Present: CTAB - Cardiovascular Cardiovascular exam IM: Present: RRR, +S1, +S2 - GI/Abdominal GI/Abdominal exam IM: normal bowel sounds, soft - Uterine Tone: Firm Uterus Position: 1 Finger Below Umbilicus, Midline - Extremities Exam Extremities exam IM: Present: full ROM, normal capillary refill, normal inspection - Neurological Exam Neurological exam: alert, oriented X3, reflexes normal
== END 2018-02-09 11:34 | disposition home or self-care (01) | DRG 560 ==
LOC: 1NENULAB 06:16 → 1NENUOBS 23:42
PROVIDERS: ADMIT Obstetrics & Gynecology; ATTEND Obstetrics & Gynecology

== ENCOUNTER 2019-12-25 16:41 | Inpatient (IN) ==
[2019-12-25 14:31] LABS: Basophils # 0.1 K/mcL (0.0-0.2); Basophils % 0.6 %; Eosinophils # 0.1 K/mcL (0.0-0.6); Eosinophils % 1.4 %; Hematocrit 34.4 % (35.3-44.9); Hemoglobin 10.8 g/dL (11.5-15.4); Immature Granulocytes % 0.6 % (0-4); Lymphocytes # 1.7 K/mcL (0.6-4.6); Lymphocytes % 18.5 %; Mean Corpuscular HGB Conc 31.4 g/dL (31.6-35.5); Mean Corpuscular Volume 82.7 fL (83.0-100.0); Mean Platelet Volume 9.8 fL (9.4-12.4); Monocytes # 0.7 K/mcL (0.0-1.3); Monocytes % 8.1 %; Neutrophils # 6.4 K/mcL (1.6-8.9); Platelet Count 232 K/mcL (140-400); Red Blood Count 4.16 M/mcL (3.82-4.97); Red Cell Distribution Width 14.2 % (11.5-14.5); Segmented Neutrophils % 70.8 %; White Blood Count 9.1 K/mcL (4.3-11.1)
[2019-12-25 14:39] LABS: Creatinine,Urine 71 mg/dL; Protein/Creatinine Ratio,Urine 0.25 mg/mg (0.00-0.20)
[2019-12-25 14:47] LABS: Alanine Aminotransferase 23 Units/L (7-52); Aspartate Amino Transferase 23 Units/L (13-39); BUN/Creatinine Ratio 7 (6-26); Blood Urea Nitrogen 4 mg/dL (6-20); Lactate Dehydrogenase 127 Units/L (140-271); Uric Acid 4.7 mg/dL (2.3-7.6); eGFR For African Americans > 60 (> 60); eGFR For Non-African Americans > 60 (> 60)
[2019-12-25] MEDS: Ringers Solution, Lactated 1,000 ML IVC SCH (16:14)
[2019-12-25 16:18] LABS: Amphetamine Screen,Urine Negative ng/mL (Cutoff=1000); Barbiturate Screen,Urine Negative ng/mL (Cutoff=200); Benzodiazepines Screen,Urine Negative ng/mL (Cutoff=200); Cannabinoid Screen,Urine Negative ng/mL (Cutoff = 50); Cocaine Screen,Urine Negative ng/mL (Cutoff= 300); Opiate Screen,Urine Negative ng/mL (Cutoff=300); Phencyclidine Screen,Urine Negative ng/mL (Cutoff=25)
[~2019-12-25 16:41] MED LIST: *HR* FentaNYL (PF) 100 MCG/2 ML VIAL IVP PRN; Azithromycin 500 MG in 0.9 % Sodium Chloride 250 ML IVPB ONE; Famotidine 20 MG/2 ML VIAL IVP PRN; Lidocaine 1% 20 ML MDV INFILT PRN; Metoclopramide 10 MG/2 ML VIAL IVP PRN; Naloxone 0.4 MG/ML INJ IVP PRN; Ondansetron 4 MG/2 ML VIAL IVP PRN; miSOPROStoL 25 MCG TABLET PO ONE
[2019-12-25 19:28] LABS: Adenovirus Not Detected (Not Detect); Bordetella Pertussis Not Detected (Not Detect); Chlamydophila pneumoniae Not Detected (Not Detect); Coronavirus 229E Not Detected (Not Detect); Coronavirus HKU1 Not Detected (Not Detect); Coronavirus NL63 Not Detected (Not Detect); Coronavirus OC43 Not Detected (Not Detect); Human Metapneumovirus Not Detected (Not Detect); Human Rhinovirus/Enterovirus Not Detected (Not Detect); Influenza A Subtype 2009 H1 Not Detected (Not Detect); Influenza B Not Detected (Not Detect); Mycoplasma pneumoniae Not Detected (Not Detect); Parainfluenza Virus 1 Not Detected (Not Detect); Parainfluenza Virus 2 Not Detected (Not Detect); Parainfluenza Virus 3 Not Detected (Not Detect); Parainfluenza Virus 4 Not Detected (Not Detect); Respiratory Syncytial Virus Not Detected (Not Detect); SARS-CoV-2 Not Detected (Not Detect)
[2019-12-25] MEDS ORDERED: Oxytocin 20 units/ LR 1000 mL 20 UNIT/1,000 ML BAG IVC SCH (22:30)
[2019-12-26] MEDS ORDERED: EPHEDrine 50 MG/ML VIAL IVP PRN (06:08)
[2019-12-26] MEDS ORDERED: Epidural Premix (fent/bupiv) 110 ML EP SCH (06:15)
[2019-12-26] MEDS: Ringers Solution, Lactated 1,000 ML IVC SCH (08:38)
[2019-12-26] MEDS ORDERED: Acetaminophen 325 MG TABLET PO ONE (12:03)
[2019-12-26] MEDS ORDERED: Acetaminophen 325 MG TABLET PO PRN (18:32)
[2019-12-26] MEDS ORDERED: Measles/Mumps/Rubella Vacc 0.5 ML VIAL SQ PRN (18:32)
[2019-12-26] MEDS ORDERED: Ibuprofen 600 MG TABLET PO PRN (18:32)
[2019-12-26] MEDS ORDERED: Oxytocin 20 units/ LR 1000 mL 20 UNIT/1,000 ML BAG IVC SCH (18:32)
[2019-12-27 07:54] VITALS: BP 127/82
[2019-12-27] MEDS ORDERED: PRENATAL VIT PO SCH (09:00)
[2019-12-27] MEDS ORDERED: Aspirin Enteric Coated 81 MG Tablet PO SCH (09:00)
[2019-12-27] MEDS ORDERED: [UNRECOGNIZED DRUG - OTHER] PO SCH (09:00)
[2019-12-27] MEDS ORDERED: Prenatal Vit/FA 1 EACH TABLET PO SCH (09:00)
[2019-12-27 11:44] LABS: Basophils # 0.1 K/mcL (0.0-0.2); Basophils % 0.5 %; Eosinophils # 0.1 K/mcL (0.0-0.6); Eosinophils % 1.3 %; Hemoglobin 9.9 g/dL (11.5-15.4); Immature Granulocytes % 0.7 % (0-4); Lymphocytes # 1.6 K/mcL (0.6-4.6); Lymphocytes % 17.1 %; Mean Corpuscular HGB Conc 30.9 g/dL (31.6-35.5); Mean Corpuscular Hemoglobin 25.8 pg (28.0-33.3); Mean Corpuscular Volume 83.6 fL (83.0-100.0); Mean Platelet Volume 10.1 fL (9.4-12.4); Monocytes # 0.8 K/mcL (0.0-1.3); Monocytes % 8.7 %; Neutrophils # 6.6 K/mcL (1.6-8.9); Platelet Count 199 K/mcL (140-400); Red Blood Count 3.83 M/mcL (3.82-4.97); Red Cell Distribution Width 14.4 % (11.5-14.5); Segmented Neutrophils % 71.7 %; White Blood Count 9.1 K/mcL (4.3-11.1)
== END 2019-12-27 16:50 | disposition home or self-care (01) | DRG 560 ==
LOC: 1NENULAB → 1NENUOBS 12-26 18:29
PROVIDERS: ADMIT Obstetrics & Gynecology; ATTEND Obstetrics & Gynecology